=== PATIENT | male | born 1995 | race Caucasian/White ===

== ENCOUNTER 2024-11-27 00:18 | Inpatient (IN) | payer OTHER ==
[2024-11-27] MEDS ORDERED: Lorazepam 2 MG/ML VIAL ONE (00:57)
[2024-11-27] MEDS ORDERED: chlordiazePOXIDE HCl 25 MG CAP ONE (00:57)
[2024-11-27 02:45] LABS: #Basophils 0.04 10x3/uL (0.0-0.2); #Eosinophils Less than 0.03 10x3/uL (0.0-0.7); %Basophils 0.6 % (0.0-1.0); %Eosinophils 0.1 % (0.0-10.0); %Lymphocytes 39.6 % (21.0-51.0); %Monocytes 9.4 % (0.0-10.0); %Neutrophils 50.2 % (42.0-75.0); Hematocrit 43.5 % (42.0-52.0); Hemoglobin 14.8 g/dL (14.0-18.0); Mean Corpuscular Hemoglobin 31.6 pg (27.0-31.0); Mean Corpuscular Volume 92.9 fL (78.0-98.0); Mean Platelet Volume 8.5 fL (7.4-10.4); Platelet Count 299 10x3/uL (130-400); RBC Distribution Width 13.9 % (11.5-14.5); Red Blood Cell (RBC) Count 4.68 mill/uL (4.70-6.10)
[2024-11-27 02:58] LABS: Acetaminophen Less than 10 mcg/mL (Less than 10); Alcohol 155.1 mg/dL (Less than 10); Salicylate Less than 8.0 mg/dL (Less than 8.0)
[2024-11-27 02:59] LABS: ALT (SGPT) 46 U/L (Less than 45); AST (SGOT) 30 U/L (11-34); Albumin 3.5 g/dL (3.1-4.5); Alkaline Phosphatase 88 U/L (40-110); Anion Gap 17 mmol/L (10-20); BUN (Urea Nitrogen) 4 mg/dL (8.9-20.6); Bilirubin, Total 1.1 mg/dL (0.3-1.2); Calc. Creatinine Clearance 0 mL/min (70-130); Carbon Dioxide 22 mmol/L (22-29); Chloride 106 mmol/L (98-107); Estimated GFR 129; Globulin 2.6 g/dL (2.4-3.5); Glucose 114 mg/dL (70-105); Potassium 3.7 mmol/L (3.5-5.1); Protein, Total 6.1 g/dL (6.0-8.3); Sodium 141 mmol/L (136-145)
[2024-11-27] MEDS ORDERED: Lorazepam 2 MG/ML VIAL SLOW IVP PRN (03:19)
[2024-11-27] MEDS ORDERED: Lorazepam 1 MG TAB PO PRN (03:20)
[2024-11-27] MEDS ORDERED: Ondansetron ODT 4 MG TAB PO PRN (03:20)
[2024-11-27] MEDS ORDERED: Acetaminophen 650 MG Suppository PR PRN (03:21)
[2024-11-27] MEDS ORDERED: Calcium Carbonate 500 MG ChewTAB PO PRN (03:21)
[2024-11-27] MEDS ORDERED: Electrolyte Replacement Protocol 1 EACH FS PRN (03:30)
[2024-11-27 04:47] VITALS: BMI 31.3
[2024-11-27] MEDS ORDERED: Lorazepam 1 MG TAB ONE ×3 (04:55→15:50)
[2024-11-27] MEDS: Thiamine HCl 200 MG/2 ML VIAL SLOW IVP SCH (05:06)
[2024-11-27] MEDS: Lorazepam 1 MG TAB PO SCH (05:07)
[2024-11-27 05:25] LABS: Lactic Acid 2.91 mmol/L (0.50-2.20)
[2024-11-27] MEDS: Ondansetron PF 4 MG/2 ML Vial IVP PRN (09:50)
[2024-11-27] MEDS: Famotidine 20 MG TAB PO SCH (09:53)
[2024-11-27] MEDS: Famotidine/PF 20 mg/2ml Vial SLOW IVP SCH (09:53)
[2024-11-27] MEDS ORDERED: Famotidine/PF 20 mg/2ml Vial ONE (09:53)
[2024-11-27] MEDS ORDERED: Ondansetron PF 4 MG/2 ML Vial ONE (09:54)
[2024-11-27] MEDS ORDERED: Folic Acid 1 MG TAB ONE (10:17)
[2024-11-27] MEDS ORDERED: Multivit, Therapeutic 1 TAB ONE (10:17)
[2024-11-27] MEDS: Folic Acid 1 MG TAB PO SCH (10:20)
[2024-11-27] MEDS: Multivit, Therapeutic 1 TAB PO SCH (10:20)
[2024-11-27] MEDS ORDERED: Acetaminophen 325 MG TAB ONE (11:07)
[2024-11-27] MEDS: Acetaminophen 325 MG TAB PO PRN (11:11)
[2024-11-28] MEDS ORDERED: Lorazepam 1 MG TAB PO PRN (03:20)
[2024-11-29] MEDS ORDERED: Lorazepam 1 MG TAB PO PRN (03:20)
[2024-11-29] MEDS ORDERED: Lorazepam 0.5 MG TAB PO SCH (03:30)
[2024-11-29 09:01] VITALS: BP 160/91; TEMP 97.8
[2024-11-30] MEDS ORDERED: Lorazepam 0.5 MG TAB PO PRN ×2 (03:20)
[2024-11-30] MEDS ORDERED: Thiamine 100 MG TAB PO SCH (03:30)
== END 2024-11-29 12:28 | disposition home or self-care (01) | DRG 897 ==
LOC: ERS 00:18 → ERHOLD 03:30 → PCU 17:44
PROVIDERS: ADMIT Student in an Organized Health Care Education/Training Program; ATTEND Family Medicine
DX: F10.229 Alcohol dependence with intoxication, unspecified (principal); E87.20 Acidosis, unspecified; F10.239 Alcohol dependence with withdrawal, unspecified; I10 Essential (primary) hypertension; Z98.84 Bariatric surgery status; Z79.899 Other long term (current) drug therapy
CPT/HCPCS: 36415; 36416; 51701; 51798; 80053; 80307; 83605; 85025; 96374; J2060; J2405; J3411; J3490